=== PATIENT | male | born 1960 | race Caucasian/White ===

== ENCOUNTER 2020-09-16 17:48 | Emergency (ER) | payer OTHER ==
[~2020-09-16] VITALS: Ht 177 cm; Wt 72.0 kg
[2020-09-16] MEDS ORDERED: ONDANSETRON 4 MG/2 ML (SDV) Z0FRAN IVP STA (17:55)
[2020-09-16] MEDS ORDERED: KETOROLAC 30 MG/ML VIAL IVP STA (17:55)
[2020-09-16] MEDS ORDERED: NS IV 1000 ML 1,000 ML IV STA (17:55)
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
[2020-09-16 18:08] LABS: HEMATOCRIT 43 % (40-54); HEMOGLOBIN 14.7 G/DL (13.3-17.7); MEAN CORPUSCULAR HEMOGLOBIN 29 PG (25-34); MEAN CORPUSCULAR HGB CONC 34 G/DL (32-36); MEAN CORPUSCULAR VOLUME 85 FL (80-99); MEAN PLATELET VOLUME 10.6 FL (7.4-10.4); PLATELET COUNT 287 10^3/uL (130-400); WHITE BLOOD COUNT 14.3 10^3/uL (4.3-11.0)
[2020-09-16] MEDS ORDERED: PROMETHAZINE INJ 25 MG/ML (PHENERGAN) AMP IVP STA (18:08)
[2020-09-16] MEDS ORDERED: fentaNYL INJ 100 MCG/2 ML AMP IVP STA (18:08)
[2020-09-16 18:09] LABS: BASOPHILS % (AUTO) 0 % (0-10); EOSINOPHILS % (AUTO) 0 % (0-10); LYMPHOCYTES # (AUTO) 1.3 X 10^3 (1.0-4.0); LYMPHOCYTES % (AUTO) 9 % (12-44); MONOCYTES % (AUTO) 5 % (0-12); NEUTROPHILS # (AUTO) 12.3 X 10^3 (1.8-7.8); NEUTROPHILS % (AUTO) 86 % (42-75)
[2020-09-16 18:10] LABS: MONOCYTES # (AUTO) 0.7 X 10^3 (0.0-1.0)
[2020-09-16 18:21] LABS: CARBON DIOXIDE 23 MMOL/L (21-32); CHLORIDE 103 MMOL/L (98-107); POTASSIUM 4.1 MMOL/L (3.6-5.0); SODIUM 138 MMOL/L (135-145)
[2020-09-16 18:22] LABS: ALANINE AMINOTRANSFERASE 11 U/L (0-55); ALBUMIN 4.2 GM/DL (3.2-4.5); ALKALINE PHOSPHATASE 83 U/L (40-136); BILIRUBIN,TOTAL 0.5 MG/DL (0.1-1.0); BUN/CREATININE RATIO 12; CALCIUM 9.4 MG/DL (8.5-10.1); CREATININE SERUM 1.17 MG/DL (0.60-1.30); GFR ESTIMATED > 60; GLUCOSE 121 MG/DL (70-105); LIPASE 29 U/L (8-78); TOTAL PROTEIN 6.8 GM/DL (6.4-8.2)
[2020-09-16 18:29] LABS: BAND NEUTROPHILS 4 %; BASOPHILS % (MANUAL) 1 %; EOSINOPHILS % (MANUAL) 0 %; LYMPHOCYTES % (MANUAL) 7 %; MONOCYTES % (MANUAL) 1 %; NEUTROPHILS % (MANUAL) 87 %
--- NOTE | 2020-09-16 18:35 | Diagnostic Imaging Report ---
PROCEDURE: CT urinary tract, rule out kidney stone. TECHNIQUE: Multiple contiguous axial images were obtained through the abdomen and pelvis without the use of intravenous contrast. Auto Exposure Controls were utilized during the CT exam to meet ALARA standards for radiation dose reduction. INDICATION: Right flank pain. COMPARISON: None. FINDINGS: There is moderate right-sided hydronephrosis secondary to an obstructive 4 mm stone in the proximal to mid ureter. There are nonobstructive calculi in both kidneys. There is no abscess, free air or free fluid. Gallbladder and additional solid organs are grossly unremarkable. The course and caliber of the large and small bowel are normal. There is mild prostate enlargement. Urinary bladder is normal. Osseous structures are age-appropriate. IMPRESSION: Mild to moderate right-sided hydronephrosis secondary to an obstructive 4 mm stone in the mid to proximal right ureter. Dictated by: Dictated on workstation # [id number]
[2020-09-16] MEDS ORDERED: MECLIZINE 25 MG (ANTIVERT) TAB PO STA (19:04)
[2020-09-16 19:47] LABS: BILIRUBIN,URINE NEGATIVE (NEGATIVE); CLARITY,URINE CLEAR; COLOR,URINE YELLOW; GLUCOSE, URINE (UA) NEGATIVE (NEGATIVE); KETONES,URINE NEGATIVE (NEGATIVE); LEUKOCYTE ESTERASE ,URINE NEGATIVE (NEGATIVE); NITRITE,URINE NEGATIVE (NEGATIVE); PROTEIN,URINE NEGATIVE (NEGATIVE)
[2020-09-16 19:48] LABS: BACTERIA,URINE NEGATIVE /HPF; RBC,URINE 25-50 /HPF
[2020-09-16] MEDS ORDERED: RX-ONDANSETRON 4 MG ODT (ZOFRAN) PPK #4 PO PRN (20:00)
[2020-09-16] MEDS ORDERED: RX-OXYCODONE/APAP 5-325 MG #4 TAB PK PO PRN (20:00)
[2020-09-16] MEDS ORDERED: OXYC-556 PO (20:36)
[2020-09-16] MEDS ORDERED: ONDA4TAB11 PO (20:36)
[2020-09-16] MEDS ORDERED: TMSL.4C PO (20:36)
[2020-09-16 20:59] VITALS: BP 128/67
== END 2020-09-16 21:14 | disposition home or self-care (01) ==
LOC: ER FS 17:49
DX: N13.2 Hydronephrosis with renal and ureteral calculous obstruction (principal)
CPT/HCPCS: 36415; 74176; 80053; 81000; 83690; 85007; 85027; 99283; G0480; 80320